=== PATIENT | female | born 1990 | race Caucasian/White ===

== ENCOUNTER 2017-11-29 18:18 | Emergency (ER) | payer MEDICAID ==
[~2017-11-29] VITALS: Ht 167.6 cm; Wt 70.8 kg
[~2017-11-29 18:18] MED LIST: AZIT250T3 PO; PREN29TA PO
[2017-11-29] MEDS ORDERED: PROM25TA10 PO (19:38)
[2017-11-29] MEDS ORDERED: BUTA1CAP PO (19:38)
--- NOTE | 2017-11-29 19:38 | PD ---
HPI Chief Complaint Patient complains of migraines, swelling in her legs and feet, nausea no vomiting Date Seen: Nov 29, 2017 Time Seen: 19:25 Travel History International Travel<30 Days: No Contact w/Intl Traveler<30Days: No Known Affected Area: No History of Present Illness HPI Patient is 26-year-old white female A1 at 37-[address] Lockhart in [place] so she is unregistered our system. She presents complaining of migraine headache she has a history of migraines in the past and used to take Roxicodone for this but is not taking that now her while she is . She has had no medicine for her headaches this headaches been going on about 2 days. He complains of swelling in her legs and ankles and nausea but no vomiting. She denies leakage or bleeding or contractions that were seen contractions on the monitor she says she feels them but they are not hurting Weeks Gestation: 37 Para: 5 : 7 History Past Medical History Narrative Medical Chronic migraine Obstetric History Obstetric History 5 vaginal deliveries Social History Narrative Social History Patient has history of use of Roxicodone for headaches Alcohol Use: No Tobacco Use: Yes Allergies-Medications (Allergen,Severity, Reaction): Coded Allergies: Penicillins (Verified Allergy, Unknown, 09/08/17) throat swelling sulfamethoxazole (Verified Allergy, Unknown, 09/08/17) body spasms trimethoprim (Verified Allergy, Unknown, 09/08/17) body spasms Home Meds Active Scripts Azithromycin (Azithromycin) 250 Mg Tab, 250 MG PO DIRECTED for Infection, #6 TAB 0 Refills Take 2 tabs (500 mg) on day 1 then 1 tab daily x 4 days. Prov:Renita Viveros 09/08/17 Reported Medications Vit-Iron Carbonyl ( Plus Iron 29-1 mg) Unknown Strength Tab, PO DAILY for Nutritional Supplement, #30 TAB 0 Refills 09/08/17 Review of Systems General / Constitutional: No: Fever, Weight Gain, Chills, Other Eyes: No: Diploplia, Blurred Vision, Visual changes, Pain, Photophobia HENT: Headaches, No: Vertigo, Lightheadedness Cardiovascular: No: Irregular Rhythm, Chest Pain or Discomfort, Palpitations, Tachycardia, Syncope, Varicosities, Edema, Cyanosis Respiratory: No: Cough, Short of Breath, Other Gastrointestinal: Nausea, No: Vomiting, Diarrhea Genitourinary: No: Decreased Urinary Output, Oliguria Musculoskeletal: Edema, No: Limited ROM, Weakness, Cramping, Pain Skin: No Rash, No Itching, No Dryness, No Lumps, No Change in Pigmentation, No Change in Nails, No Alopecia, No Lesions Neurologic: No: Weakness, Dizziness, Syncope, Focal Abnormalities, Coordination Problem, Headache, Slurred Speech, Seizures Psychiatric: No: Depression, Suicidal Ideations, Homicidal Ideation Endocrine: No: Heat Intolerance, Cold Intolerance, Polydipsia, Polyuria, Other Physical Exam Narrative GENERAL: Well-nourished, well-developed patient. SKIN: Warm and dry. Covered in tattoos HEAD: Normocephalic and atraumatic. EYES: No scleral icterus. No injection or drainage. ENT: No nasal drainage noted. Mucous membranes pink. Airway patent. NECK: Supple, trachea midline. No JVD. CARDIOVASCULAR: Regular rate and rhythm without murmurs, gallops, or rubs. RESPIRATORY: Breath sounds equal bilaterally. No accessory muscle use. BREASTS: Bilateral exam showed no masses , no retractions, no nipple discharge. ABDOMEN/GI: Abdomen soft, non-tender, bowel sounds present, no rebound, no guarding Gravid to [-37] weeks size Fundal Height: [-37] GENITOURINARY: External Genitalia: intact and normal in appearance BUS glands: [-] Cervix: [post-] Dilatation: [-1-2] Effacement: [40-] Station: [-3] Presentation: [-vtx] Membranes: [intact ] Uterine Contractions: [irreg -] FHT's: Category: [1-] Baseline: [-133] Reactive: [-R] Variability: [-mod] Decels: [-none] EXTREMITIES: No cyanosis or edema. BACK: Nontender without obvious deformity. No CVA tenderness. NEUROLOGICAL: Awake and alert. Motor and sensory grossly within normal limits. Five out of 5 muscle strength in all muscle groups. Normal speech. MDM Interpretation(s) Patient is 26-year-old white female at 37 and 38 weeks with migraine which she has a history of swelling which is minimal., nausea which has been on and off. She has some contractions going on but barely feels them cervix is 1 thick and high, heart rate tracing is reactive and only very small low amplitude contractions seen with occasional large contraction. None of these are hurting Plan Plan the patient to get the prescriptions for Fioricet for migraines and Phenergan for nausea for home use. She is to use a low-salt diet help her swelling elevate her extremities that seem swollen. Bed rest will improve most of these symptoms and others. She is to follow-up with her OB provider in the usual fashion Diagnosis Diagnosis: Primary Impression: Migraine Additional Impressions: Nausea alone 37 weeks gestation of Disposition: 01 DISCHARGE HOME Condition: Stable Scripts Promethazine (Phenergan) 25 Mg Tablet 25 MG PO Q6H Y for NAUSEA OR VOMITING, #20 TAB 1 Refill Prov: Evangelist Jiménez II, MD 11/29/17 Magwkhqjop-Vlyrvonfyszqt-Mwvddweq (Fioricet) 50-300-40 Mg Cap 1-2 CAP PO Q6H Y for HEADACHE, #20 CAP 1 Refill Prov: Evangelist Jiménez II, MD 11/29/17 Evangelist Jiménez II, MD Nov 29, 2017 19:38
== END 2017-11-29 19:53 | disposition home or self-care (01) ==
LOC: HOBED 18:18
DX: O26.893 Other specified pregnancy related conditions, third trimester (principal); G43.909 Migraine, unspecified, not intractable, without status migrainosus; R11.0 Nausea; Z3A.37 37 weeks gestation of pregnancy; Z88.0 Allergy status to penicillin; Z88.2 Allergy status to sulfonamides; Z88.8 Allergy status to other drugs, medicaments and biological substances
CPT/HCPCS: 59025

== ENCOUNTER → 2017-12-07 | Emergency (ER) | payer MEDICAID ==
[~2017-12-07] VITALS: Ht 167.6 cm; Wt 70.8 kg
[~2017-12-07] MED LIST changes: -AZIT250T3 PO; +BUTA1CAP PO; +PROM25TA10 PO
--- NOTE | 2017-12-07 17:45 | PD ---
HPI Chief Complaint back pain Date Seen: Dec 07, 2017 Time Seen: 17:41 Travel History International Travel<30 Days: No Contact w/Intl Traveler<30Days: No Known Affected Area: No History of Present Illness HPI pt. is a @ 38 6/7 weeks presnts w/ back pain. pt. states over the last 2 days has increased in intensity and freq, and today had 4 min intense pain. + FM, no lof/vb. Weeks Gestation: 38 Para: 5 : 7 History Past Medical History Medical History: Denies Significant Hx Obstetric History Obstetric History , x 5, tab x 1 Past Surgical History Surgical History: No Previous Surgery Family History Family History: Negative Social History Alcohol Use: No Tobacco Use: No Substance Abuse: No Allergies-Medications (Allergen,Severity, Reaction): Coded Allergies: Penicillins (Verified Allergy, Unknown, 11/29/17) throat swelling sulfamethoxazole (Verified Allergy, Unknown, 11/29/17) body spasms trimethoprim (Verified Allergy, Unknown, 11/29/17) body spasms Home Meds Active Scripts Promethazine (Phenergan) 25 Mg Tablet, 25 MG PO Q6H Y for NAUSEA OR VOMITING, # 20 TAB 1 Refill Prov:Evangelist Jiménez II, MD 11/29/17 Szdxbiyidd-Tjhunjmqcxsjt-Fowhskcf (Fioricet) 50-300-40 Mg Cap, 1-2 CAP PO Q6H Y for HEADACHE, #20 CAP 1 Refill Prov:Evangelist Jmiénez II, MD 11/29/17 Reported Medications Vit-Iron Carbonyl ( Plus Iron 29-1 mg) Unknown Strength Tab, PO DAILY for Nutritional Supplement, #30 TAB 0 Refills 09/08/17 Review of Systems Except as stated in HPI: all other systems reviewed are Neg Physical Exam Narrative GENERAL: Well-nourished, well-developed patient. SKIN: Warm and dry. HEAD: Normocephalic and atraumatic. EYES: No scleral icterus. No injection or drainage. ENT: No nasal drainage noted. Mucous membranes pink. Airway patent. NECK: Supple, trachea midline. No JVD. CARDIOVASCULAR: Regular rate and rhythm without murmurs, gallops, or rubs. RESPIRATORY: Breath sounds equal bilaterally. No accessory muscle use. ABDOMEN/GI: Abdomen soft, non-tender, bowel sounds present, no rebound, no guarding Gravid GENITOURINARY: External Genitalia: intact and normal in appearance Cervix: posterior Dilatation: 1 Effacement: 50 Station: high Presentation:cephalic Membranes: intact Uterine Contractions: none FHT's: Category: 1 Reactive: + Variability: mod Decels: none EXTREMITIES: No cyanosis or edema. BACK: Nontender without obvious deformity. No CVA tenderness. NEUROLOGICAL: Awake and alert. Motor and sensory grossly within normal limits. Five out of 5 muscle strength in all muscle groups. Normal speech. Data Data Vital Signs Reviewed: Yes [facility] Medical Record Reviewed: Yes Diagnosis Diagnosis: Primary Impression: False labor after 37 completed weeks of gestation Additional Impression: 38 weeks gestation of Disposition: 01 DISCHARGE HOME Pavel Bustamante Jr., MD Dec 07, 2017 17:45
== END | disposition home or self-care (01) ==
LOC: HOBED 14:55
DX: O47.1 False labor at or after 37 completed weeks of gestation (principal); Z3A.38 38 weeks gestation of pregnancy; Z88.0 Allergy status to penicillin; Z88.2 Allergy status to sulfonamides; Z88.8 Allergy status to other drugs, medicaments and biological substances
CPT/HCPCS: 59025